=== PATIENT | male | born 1950 | race Caucasian/White ===

== ENCOUNTER 2018-01-30 12:40 | Outpatient (CLI) | payer OTHER ==
[~2018-01-30] VITALS: Ht 185.4 cm; Wt 102.3 kg
--- NOTE | ~2018-01-30 | HEMODYNAMI ---
PATIENT:ABHAY JAEGER MEDICAL RECORD: [id number] : 48 LOCATION:[facility] ADMISSION DATE: 01/30/18 Generatedon:01/30/201815:58 Patient name: ABHAY JAEGER Patient #: [id number] SSN: : 1950 Date of study: 01/30/2018 Page: Of Hemodynamic Procedure Report Patient Data Patient Demographics Procedure consent was obtained First Name: ABHAY Gender: Male Last Name: HEIDE : 1950 [facility] Initial: RYAN Age: 67 year(s) Patient #: [id number] Race: Unknown Additional ID: [id number] Contact details Address: [facility] [address] State: [place] City: [place] Zip code: [address] Past Medical History Allergies Allergen Reaction Date Comments Reported Statins 01/30/2018 Admission Admission Data Admission Date: 01/30/2018 Admission Time: 12:40 Procedure Procedure Types Cath Procedure Diagnostic Procedure LHC LHC w/Coronaries Procedure Description Procedure Date Procedure Date: 01/30/2018 Procedure Start Time: 15:45 Procedure End Time: 15:53 Procedure Staff Name Function Art Oseguera MD Performing Physician Georgiana Quiñones RT Monitor Phillip Branham RT Scrub Thiago Velasquez RN Nurse Procedure Data Cath Procedure Fluoroscopy Diagnostic fluoroscopy Total fluoroscopy Time: 1.8 time: 1.8 min min Diagnostic fluoroscopy Total fluoroscopy dose: 577 dose: 577 mGy mGy Contrast Material Contrast Material Type Amount (ml) Isovue 300 63 Entry Location Entry Primary Successful Side Size Upsize Upsize Entry Closure Succes sful Closure Location (Fr) 1 (Fr) 2 (Fr) Remarks Device Remarks Radial Right 6 Fr artery Short Estimated blood loss: 5 ml Diagnostic catheters Device Type Used For End Catheter Placement DIAGNOSTIC [place] 110cm 5 Procedure Fr catheter (194936) Procedure Complications No complications Procedure Medications Medication Administration Route Dosage Oxygen etCO2 Nasal cannula 2 l/min Heparin Flush Bag added to field 2 bags (1000units/500ml NS) 0.9% NaCl I.V. 100 ml/hr Versed I.V. 2 mg Fentanyl I.V. 100 mcg Fentanyl I.V. 50 mcg Fentanyl I.V. 50 mcg Hemodynamics Rest Heart Rate: 61 (bpm) Snapshots Pre Cath Intra NCS Post Cath Vital Signs Time Heart Resp SPO2 etCO2 NIBP (mmHg) Rhythm Pain Sedation Rate (ipm) (%) (mmHg) Status Level (bpm) 15:35:45 62 17 98 0 162/87(142) NSR 0 (11) 10(A) , No pain 15:40:28 60 18 98 39 160/89(111) NSR 0 (11) 10(A) , No pain 15:45:11 60 16 97 0 137/86(111) NSR 0 (11) 10(A) , No pain 15:49:53 63 16 94 15.7 135/74(99) NSR 0 (11) 9(A) , No pain 15:57:36 64 17 94 0 142/75(110) NSR 0 (11) 9(A) , No pain Medications Time Medication Route Dose Verified Delivered Reason Notes Effe ctiveness by by 15:34:08 Oxygen etCO2 2 Art Thiago Per Nasal l/min Oumar Velasquez RN physician cannula 15:34:17 Heparin Flush added 2 Art Thiago used for Bag to bags Oumar Velasquez RN procedure (1000units/500ml field NS) 15:34:24 0.9% NaCl I.V. 100 Art Thiago Per ml/hr Oumar Velasquez RN physician 15:44:05 Versed I.V. 2 mg Art Das for Oumar Velasquez RN sedation 15:44:16 Fentanyl I.V. 100 Art Das for mcg Oumar Velasquez RN sedation 15:46:09 Fentanyl I.V. 50 Art Das for mcg Oumar Velasquez RN sedation 15:49:18 Fentanyl I.V. 50 Art Das for mcg Oumar Velasquez RN sedation Procedure Log Time Note 15:15:17 Thiago Velasquez RN sent for patient. Start room use. 15:21:18 Time tracking: Regular hours (M-F 7:00 - 5:00) 15:21:22 Plan of Care:Hemodynamics will remain stable., Cardiac rhythm will remain stable., Comfort level will be maintained., Respiratory function will remain adequate., Patient/ family verbilizes understanding of procedure., Procedure tolerated without complication., Recovers from procedure without complications.. 15:30:05 Patient received from ED to CCL 1 Alert and oriented. Tansferred to table in Supine position. 15:30:06 Warm blankets applied, and cristina hugger turned on for patient comfort. 15:30:07 Correct patient and procedure confirmed by team. 15:30:07 ECG and BP/O2 sat monitors applied to patient. 15:30:09 Signed procedure consent form obtained from patient. 15:30:24 H&P Date Dictated: 01/30/2018 New H&P dictated by physician.. 15:30:25 Pre-procedure instructions explained to patient. 15:30:25 Pre-op teaching completed and patient verbalized understanding. 15:30:26 Family in waiting room. 15:30:28 Patient NPO since Midnight. 15:30:30 Is the patient allergic to Iodine/contrast media? No. 15:30:31 Is patient on blood thinner?Yes 15:30:34 ACC The patient was administered the following blood thiners within the last 24 hours: ACCPlavix, Xarelto 15:30:35 Patient diabetic? No. 15:30:37 Previous problem with sedation/anesthesia? No ? 15:30:39 Snore? Yes 15:30:40 Sleep apnea? Yes 15:30:41 Deviated septum? No 15:30:41 Opens mouth fully? Yes 15:30:42 Sticks out tongue? Yes 15:30:44 Airway obstruction? No ? 15:30:45 Dentures? No ? 15:34:08 Oxygen 2 l/min etCO2 Nasal cannula was administered by Thiago Velasquez RN; Per physician; 15:34:17 Heparin Flush Bag (1000units/500ml NS) 2 bags added to field was administered by Thiago Velasquez RN; used for procedure; 15:34:24 0.9% NaCl 100 ml/hr I.V. was administered by Thiago Velasquez RN; Per physician; 15:35:57 ECG and BP/O2 sat monitors applied to patient. 15:36:14 Rhythm: paced 15:36:16 Full Disclosure recording started 15:36:43 Patient allergic to Statins 15:36:48 Pre procedure: right dorsailis pedis pulse 2+ Normal; easily identifiable; not easily obliterated 15:36:49 Modified Maxi's test Ulnar < 7 seconds 15:36:51 Patient pain scale 0/10 ?. 15:36:57 IV patent on arrival in left forearm with 0.9% NaCl at O. 15:36:59 Lab results completed and on chart. 15:37:04 Right Radial & Right Groin area was prepped with chlora-prep and draped in sterile fashion 15:37:05 Alarms reviewed by R. N. 15:37:06 Sharps counted by scrub and verified by R.N. 15:37:10 Use device set Radial Dx or PCI 15:37:11 ACIST Syringe (91902) opened to sterile field. 15:37:12 Medline Cath Pack ([id number]) opened to sterile field. 15:37:12 Bag Decanter (2002S) opened to sterile field. 15:37:13 DIAGNOSTIC WIRE .035 260cm J wire (208222) opened to sterile field. 15:37:13 ACIST Hand Control (58042) opened to sterile field. 15:37:14 ACIST Manifold (65845) opened to sterile field. 15:37:14 Tegaderm 4 x 4 (1626W) opened to sterile field. 15:37:15 MBrace Wrist Support ([id number]) opened to sterile field. 15:37:17 SHEATH 6Fr Prelude Radial ([id number]) opened to sterile field. 15:38:29 Baseline sample Acquired. 15:43:40 --------ALL STOP TIME OUT------ 15:43:41 Final Timeout: patient, procedure, and site verified with staff and physician. All members of the team are in agreement. 15:43:47 Right Radial & Right Groin site verified by team. 15:43:50 Physical assessment completed. ASA score P 2 - A patient with mild systemic disease as per Art Oseguera MD. 15:43:54 Sedation plan: IV Moderate Sedation Medication:Versed, Fentanyl 15:44:05 Versed 2 mg I.V. was administered by Thiago Velasquez RN; for sedation; 15:44:16 Fentanyl 100 mcg I.V. was administered by Thiago Velasquez RN; for sedation; 15:45:06 Procedure started. 15:45:13 Local anesthetic to right radial artery with Lidocaine 2% by Art Oseguera MD.INITIAL ACCESS ONLY 15:46:09 Fentanyl 50 mcg I.V. was administered by Thiago Velasquez RN; for sedation; 15:46:23 A 6 Fr Short sheath was inserted into the Right Radial artery 15:47:12 A DIAGNOSTIC [place] 110cm 5 Fr catheter (798091) was advanced over the wire and used for Procedure. 15:47:45 LV gram done using NEGRON 15:47:49 Injector settings: Ml/sec: 7, Volume: 15, 15:48:12 EF : 50 % 15:48:41 RCA angiography performed. 15:48:43 Catheter exchanged over wire. 15:48:55 unable to engage LT. coronary 15:49:15 GUIDE 6FR XBLAD 3.5 catheter ([id number]) opened to sterile field. 15:49:18 Fentanyl 50 mcg I.V. was administered by Thiago Velasquez RN; for sedation; 15:49:23 6 Fr XBLAD 3.5 guide catheter was inserted over the wire 15:51:12 LCA angiography performed. 15:51:22 Guide catheter removed. 15:51:25 TR BAND Standard ([id number]) opened to sterile field. 15:51:38 Procedure ended.(Physican Out) 15:51:52 Fluoroscopy time 01.80 minutes. 15:51:55 Fluoroscopy dose: 577 mGy 15:51:55 Flurop Dose total: 577 15:52:33 Contrast amount:Isovue 300 63ml. 15:52:34 Sharps counted by scrub and verified by R.N. 15:52:39 TR band inflated with 10cc of air. 15:52:42 Post-procedure physical assessment completed. ASA score P 2 - A patient with mild systemic disease as per Art Oseguera MD. 15:52:45 Post procedure rhythm: unchanged. 15:52:48 Estimated blood loss: 5 ml 15:52:49 Post procedure instruction explained to patient.Patient verbalizes understanding. 15:52:49 Patient needs reinforcement of post procedure teaching. 15:53:24 Procedure and supply charges have been captured, reviewed, submitted and are correct. 15:53:28 Procedure Complication : No complications 15:53:31 Vital chart was stopped 15:53:32 See physician's report for complete and final results. 15:53:33 Report given to PCU. 15:53:36 Patient transfered to PCU with Bed. 15:53:41 Procedure ended. 15:53:41 Full Disclosure recording stopped 15:53:43 End room use (Document Last) Device Usage Item Name Manufacture Quantity Catalog Number Hospital Part Current M inimal Lot# / Charge Number Stock Stock Serial# Code ACIST Syringe Acist 1 39322 348336 709127 403115 2 0 (26143) [employer] Medline Cath Cardinal 1 [id number] 166858 37790 736112 5 Pack Health ([id number]) Bag Decanter Microtek 1 2001S 993141 76775 009976 5 (2001S) Medical Inc. DIAGNOSTIC WIRE St Enrique 1 370669 107677 157479 382265 3 0 .035 260cm J wire (397145) ACIST Hand Acist 1 82161 851932 029431 299681 5 Control (31079) [employer] Inc ACIST Manifold Acist 1 36711 145103 801397 490919 5 (92580) [employer] Inc Tegaderm 4 x 4 3M 1 1626W 211412 888719 289393 5 (1626W) MBrace Wrist Advanced 1 140-0250-00 144644 02103 478475 5 Support Vascular ([id number]) Dynamics SHEATH 6Fr Merit 1 [id number] 089641 786280 174190 5 Prelude Radial Medical ([id number]) DIAGNOSTIC Terumo 1 40-3483 747818 909229 566999 5 [place] 110cm 5 Fr catheter (977794) GUIDE 6FR XBLAD Cardinal 1 [id number] 212193 729788 261173 1 0 3.5 catheter Better Bean (75517205) TR BAND Terumo 1 [id number] 151693 187382 750881 4 0 Standard ([id number]) Signature Audit [place] Stage Time Signature Unsigned Intra-Procedure 01/30/2018 Georgiana Quiñones 3:58:12 PM RT(R) Signatures Monitor : Georgiana Quiñones Signature : RT Date : Time : [place] [address] [place] [address]
--- NOTE | ~2018-01-30 | OP ---
PATIENT NAME: ABHAY JAEGER MEDICAL RECORD: [id number] :48 LOCATION:D.[facility] ADMISSION DATE: SURGEON: MICHELL ROBERTS MD DATE OF OPERATION: 01/30/2018 DATE OF SERVICE: 01/30/2018 PROCEDURES: 1. Left heart catheterization. 2. Selective coronary angiography. 3. Left ventriculogram. INDICATION: Chest pain compatible with angina. PROCEDURE IN DETAIL: After informed consent was obtained and after a detailed description of risks, benefits as well as alternative therapies, the patient elected to proceed with angiogram and heart catheterization. The right radial area was prepped and draped in normal sterile fashion. Right radial artery was cannulated via modified Seldinger technique with placement of 5-Trinidadian sheath. All catheters exchanged through this sheath. FINDINGS: Left ventriculogram was performed in standard 30-degree NEGRON view, reveals good cardiac wall motion throughout all segments. Overall ejection fraction estimated 60%. SELECTIVE CORONARY ANGIOGRAPHY: Left main, left anterior descending, left circumflex, right coronary artery are all smooth-walled vessels with no angiographic evidence of coronary artery disease. OVERALL IMPRESSION: 1. No angiographic evidence of coronary artery disease. 2. Normal left heart pressures. 3. Normal left ventricular systolic function. Chest pain is noncardiac in etiology. No further cardiac workup needs to be ascertained. TRANSINT:[id number] Voice Confirmation ID: [id number] DOCUMENT ID: [id number] MICHELL ROBERTS MD at 1834 CC: [id number] DICTATION DATE: 01/30/18 1559 SHALLOT CLEANER: 01/30/18 1613 [facility] CLI 01/31/18 [place] [id number]
[2018-01-30] MEDS ORDERED: EFFEXOR100 MG PO (12:45)
[2018-01-30] MEDS ORDERED: XARELTO20 MG PO ×2 (12:45→12:47)
[2018-01-30] MEDS ORDERED: LIPITOR40 MG PO (12:46)
[2018-01-30] MEDS ORDERED: BUPROPION HCL150 M1 PO (12:46)
[2018-01-30] MEDS ORDERED: COZAAR25 MG PO (12:47)
[2018-01-30] MEDS ORDERED: COREG6.25 MG PO (12:47)
[2018-01-30 13:14] LABS: BASOPHILS 0.8 % (0-2); EOSINOPHILS 4.3 % (0-7); HEMATOCRIT 41.7 % (42.0-54.0); HEMOGLOBIN 14.5 g/dL (13.5-17.5); IMMATURE GRANULOCYTES 0.3 % (0-5); LYMPHOCYTES 18.7 % (15-50); MCH 29.9 pg (26.0-34.0); MCHC 34.8 g/dL (31.0-37.0); MEAN PLATELET VOLUME 8.4 fL (7.4-10.4); MONOCYTES 9.6 % (2-11); NEUTROPHILS 66.3 % (40-80); PLATELET COUNT 198 10x3/uL (130-400); RBC 4.85 10x6/uL (4.20-6.10); RDW 12.8 % (11.5-14.5)
[2018-01-30 13:45] LABS: APTT 32.2 SECONDS (22.8-39.4); INR 1.48 (0.85-1.17); PROTIME 17.5 SECONDS (11.6-15.0)
[2018-01-30 13:46] LABS: D-DIMER-QUANTITATIVE < 0.27 ug/mLFEU (0.20-0.54)
[2018-01-30 13:51] LABS: ALBUMIN 3.3 g/dL (3.4-5.0); ALKALINE PHOSPHATASE 105 U/L (46-116); ALT (SGPT) 24 U/L (10-68); BILIRUBIN - TOTAL 0.51 mg/dL (0.2-1.3); CALC OSMOLALITY 280 mosm/kg (275-300); CALCIUM 8.4 mg/dL (8.5-10.1); CARBON DIOXIDE 28.4 mmol/L (21.0-32.0); CHLORIDE - SERUM 106 mmol/L (98-107); CREATININE - SERUM 1.1 mg/dL (0.6-1.3); GLUCOSE 110 mg/dL (74-106); POTASSIUM - SERUM 3.6 mmol/L (3.5-5.1); PROTEIN - SERUM 6.3 g/dL (6.4-8.2); SODIUM 140 mmol/L (136-145); UREA NITROGEN 15 mg/dL (7-18); eGFR NON AFRICAN AMERICAN 71 mL/min (90-120)
[2018-01-30 14:02] LABS: CKMB 7.7 U/L (0.0-3.6); CREATINE KINASE 195 UL (21-232); MAGNESIUM - SERUM 1.9 mg/dL (1.8-2.4); TROPONIN-I < 0.017 ng/mL (0.000-0.060)
[2018-01-30 18:30] VITALS: BP 148/82; Ht 185.4 cm; Wt 102.3 kg
[2018-01-30 20:35] VITALS: BP 118/74
[2018-01-31 05:12] LABS: BASOPHILS 0.6 % (0-2); EOSINOPHILS 5.3 % (0-7); HEMATOCRIT 41.8 % (42.0-54.0); HEMOGLOBIN 14.3 g/dL (13.5-17.5); IMMATURE GRANULOCYTES 0.4 % (0-5); MCH 29.7 pg (26.0-34.0); MCHC 34.2 g/dL (31.0-37.0); MCV 86.9 fL (80.0-100.0); MEAN PLATELET VOLUME 8.4 fL (7.4-10.4); MONOCYTES 11.6 % (2-11); NEUTROPHILS 56.1 % (40-80); PLATELET COUNT 177 10x3/uL (130-400); RBC 4.81 10x6/uL (4.20-6.10); RDW 12.8 % (11.5-14.5); WBC 5.2 10x3/uL (4.8-10.8)
[2018-01-31 05:24] LABS: ANION GAP 7.3 mmol/L (8-16); BILIRUBIN - TOTAL 0.36 mg/dL (0.2-1.3); CALCIUM 7.8 mg/dL (8.5-10.1); CARBON DIOXIDE 29.3 mmol/L (21.0-32.0); CREATININE - SERUM 1.3 mg/dL (0.6-1.3); POTASSIUM - SERUM 3.6 mmol/L (3.5-5.1); PROTEIN - SERUM 5.9 g/dL (6.4-8.2)
[2018-01-31 05:34] VITALS: BP 141/80
[2018-01-31 08:26] VITALS: BP 120/75
== END 2018-01-31 12:13 | disposition home or self-care (01) ==
LOC: D.CATH 12:40 → D.ER 12:40 → EDSTATUS 15:12 → D.M2 16:04 → D.CATH 01-31 12:13
PROVIDERS: Family Medicine
DX: R07.89 Other chest pain (principal); Z01.812 Encounter for preprocedural laboratory examination